=== PATIENT | male | born 1950 | race Caucasian/White ===

== ENCOUNTER 2025-01-21 11:52 | Emergency (ER) | payer OTHER, SELFPAY ==
--- OUTSIDE RECORDS SUMMARY | 2025-01-21 11:53 | XMS_ITS | Clinical Summary ---
Author Organization [facility] Address [address] [place] [address] Care Team Providers Care Sagger Soak Name Role Phone Chandra Padilla MD Primary Care Provider [phone] Allergies Active Allergy Reactions Criticality Noted Date Comments Codeine Nausea Only,GI Upset Low 02/22/2018 Medications Evans-3 Fatty Acids (FISH OIL) 1200 MG Cap Take 2 tablets by mouth daily. Active Flaxseed, Linseed, (FLAX SEEDS OR) Take 1 tablet by mouth daily. Active Turmeric 400 MG Cap Take 1 tablet by mouth daily. Active multivitamin tablet Take 1 tablet by mouth daily. Active Coenzyme Q10 (CO Q-10) 100 MG Cap Take 1 tablet by mouth. Active Psyllium 48.57 % Powder Take by mouth daily. Active vitamin D3, cholecalciferol, 1000 UNIT Tab tablet Take 1 tablet (25 mcg total) by mouth daily. Active atorvastatin (LIPITOR) 20 MG tabletIndications:M ixed hyperlipidemia TAKE 1 TABLET BY MOUTH EVERY DAY 90 tablet 1 5 Active meloxicam (MOBIC) 15 MG tabletIndications:T endonitis of right hip flexor Take 1 tablet (15 mg total) by mouth daily. 30 tablet 5 Active Active Problems Problem Noted Date Diagnosed Date Tendonitis of right hip flexor 11/24/2024 Right inguinal hernia 03/19/2023 Gastroenteritis 06/20/2022 Bunion of great toe of right foot 02/06/2022 Non-recurrent unilateral ing uinal hernia without obstruction or gangrene 12/02/2021 Fatigue, unspecified type 11/29/2020 Foot deformity, acquired, right 05/28/2020 BMI 23.0-23.9, adult 02/24/2019 Mixed hyperlipidemia 02/24/2019 Generalized osteoarthritis of multiple sites 05/2017 Resolved Problems Problem Noted Date Diagnosed Date Resolved Date Dizziness on standing 11/07/20202022 Bilateral impacted cerumen 03/15/2019 0 06/02/2022 Need for prophylactic vaccin ation against Streptococcus pneumoniae (pneumococcus) 02/24/2019 05/27/2021 Colon cancer screening 08/23/201806/09 Essential hypertension 05/24/201806/02 Encounters Date Type Department Care Team Description 12/27/2024 Scan HEALTH INFO SRVCS Scanned, Doc [facility] 12/07/2024 8:08 AM CDT - 12/07/2024 11:59 PM CDT Hospital Encounter [facility] [address] [place] [id number] Lelia Quijano, PT Lucien Phillips, Katy Ward PTA Hip Pain (R hip tendonitis) Discharge Disposition: Home or Self Care (Routine Discharge) 12/07/2024 Travel 12/01/2024 10:49 AM CDT - 12/01/2024 11:59 PM CDT Hospital Encounter [facility] [address] [place] [id number] Lelia Quijano, PT Lucien Phillips, PA Hip Pain Discharge Disposition: Home or Self Care (Routine Discharge) 12/01/2024 Travel 11/24/2024 10:26 AM CDT - 11/24/2024 11:59 PM CDT Hospital Encounter [facility] [address] [place] [id number] Cherise Huggins, DPT Lucien Phillips, PA Discharge Disposition: Home or Self Care (Routine Discharge) 11/24/2024 Travel 11/11/2024 7:20 AM CDT Office Visit [facility] Family & Internal Medicine [address] [phone] Lucien Phillips, PA Hip Pain (Pain from R groin area to hip x3 mo getting worse not taking anything for pain) 11/11/2024 Travel from Last 3 Months Immunizations Immunization Administration Dates Next Due FLUAD (IIV, Trivalent, 0.5 M L Pre-filled Syringe) 12/29/2023 Fluzone High Dose (IIV, triv alent, 0.5mL) 12/27/2024 Fluzone High Dose - >Age 65 (Prefilled Syringe) 01/05/2023,12/23/2021 Influenza (Generic) 12/25/2018,12/22/2017 Influenza Adult (Generic) 01/04/2021,,12/25/2018,2017 MODERNA COVID-19 (SENIOR MANUFACTURING ENGINEER PETER KIRAN), MRNA, LNP-S, PF, 50 MCG/ 0.25 ML DOSE 04/10/2021 Pneumococcal (Pneumovax 23) 05/23/2021 Pneumococcal (Prevnar 13) 02/24/2019 Shingrix 11/23/2021,08/21/2021 Family History Medical History Relation Comments Heart Father Arthritis Mother Relation Status Comments Father Mother Social History Tobacco Use Types Packs/Day Years Used Date Smoking Tobacco: Never Passive Smoke Exposure: Past Smokeless Tobacco: Never Tobacco Cessation:Counseling Given: No Comments:na Alcohol Use Standard Drinks/Week Comments No 0 (1 standard drink = 0.6 oz pur e alcohol) AUDIT-C Answer Date Recorded Frequency of Alcohol Consumption Never 02/22/2018 Average Number of Drinks Not on file 018 Frequency of Binge Drinking Not on file 05/2017 PHQ-2 Answer Date Recorded Patient Health Questionnaire-2 Score 0 08/25/2024 Education Answer Date Recorded What is the highest level of school you have completed or the highest degree you have received? 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 Not on file Not on file Not on fi le Last Filed Vital Signs Vital Sign Reading Time Taken Comments Blood Pressure 128/80 11/11/2024 7:36 AM CDT man ual Pulse 74 11/11/2024 7:31 AM CDT Temperature 36.4 C (97.5 F) 11/11/2024 7:31 AM CDT Respiratory Rate 18 11/11/2024 7:31 AM CDT Oxygen Saturation 99% 11/11/2024 7:31 AM CDT Inhaled Oxygen Concentration - - Weight 62.8 kg (138 lb 6.4 oz) 11/11/2024 7:31 A M CDT Height 175.3 cm (5' 9) 11/11/2024 7:31 AM CDT Body Mass Index 20.44 11/11/2024 7:31 AM CDT Plan of Treatment Upcoming Encounters Date Type Department Care Team (Late st Contact Info) Description 02/28/2025 1:00 PM 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 EQUIPMENT 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 Office Visit [facility] Family & Internal Medicine [facility] [id number] [place] [phone] Chandra Padilla MD [phone] [address] Health Maintenance Due Date Last Done Comments Hepatitis C 1968 DTaP, Tdap and Td Vaccines (1 - Tdap) 10[birth year]14/1969 Annual Medicare Wellness Visit 2017 COVID-19 Vaccine ( - season) 2024 04/10/2021, 05/28/2020 Colorectal Cancer Screening FIT-DNA (3 Years) 06/11/2025 06/11/2022, 06/11/2022, 03/11/2019 RSV Immunization or 60+ Years (1 - 1-dose 75+ series) 10/14/2027 Pneumococcal Vaccine: 50+ Years Completed 05/23/2021, 02/24/2019 Zoster Vaccines Completed 11/23/2021, 08/21/2021 PHQ-2 (Physician Kiana) Completed 08/25/2024 Influenza Adult Completed 12/27/2024, 1010/2023, 01/05/2023, Additional history exists Hepatitis A Vaccines Aged Out No long er eligible based on patient's age to complete this topic Meningococcal B Vaccine Aged Out No l onger eligible based on patient's age to complete this topic Meningococcal Vaccine Aged Out No duran prashant eligible based on patient's age to complete this topic RSV Immunizations Under 20 Months Aged Out No longer eligible based on patient's age to complete this topic Medical Devices Implanted Type Area Pest Management Supervisor Device Identifier Shelf Expiration Date Model / Serial / Lot Plug Hernia Light Mesh Xlarge - [id number] Implanted:Qty : 1 on 04/09/2023 by Apollo Aldridge MD at [facility] Mesh Right: Abdomen [employer] - DIV C R [employer]ARD [employer] [id number] 02/17/2027 [id number] / / Mesh Marlex Groin 4 X 1.8 - [id number] Implanted:Qty : 1 on 04/09/2023 by Apollo Aldridge MD at [facility] Mesh Right: Abdomen [employer] - DIV C R [employer] [id number] 09/18/2027 [id number] / / [id number] Pump Pain On-Q 400ml - [id number] Implanted:Qty : 1 on 04/09/2023 by Apollo Aldridge MD at [facility] Pump Right: Abdomen [employer]ello Inc[employer] Bluc[employer] 11/02/2024 [id number] / / [id number] [place] Plantar Plate Repair Implant Set Implanted:Qty : 1 on 02/25/2022 by Karmen Walker DPM at [facility] Right: Foot 12/02/2026 [id number] / / [id number] Small Phalinx Implant Implanted:Qty : 2 on 02/25/2022 by Karmen Walker DPM at [facility] Right: Toe [id number] / / Snap Off Screw Diam 2lg.12 Implanted:Qty : 2 on 02/25/2022 by Karmen Walker DPM at [facility] Right: Toe [employer] DIV CLAUDETTE JESUS [id number] / / Explanted Type Area Pest Management Supervisor Device Identifier Shelf Expiration Date Model / Serial / Lot 0.9mm Kwire Explanted:Qty: 1 on 02/25/2022 at [facility] Right: Toe [employer] [id number] / / 2.2mm Drill Explanted:Qty: 1 on 02/25/2022 at [facility] Right: Toe [employer] [id number] / / 7.5 Mm Planar Explanted:Qty: 1 on 02/25/2022 at [facility] Right: Toe [employer] [id number] / / [id number] Procedures Procedure Name Priority Date/Time Associated Diagnosis Comments COLOGUARD (EXACT SCIENCE) Routine 06/11/2022 8:00 AM CDT Colon cancer screening from Last 3 Months or Most Recently Relevant to Health Maintenance Results * COLOGUARD (EXACT SCIENCE) (06/11/2022 8:00 AM CDT) COLOGUARD RESULT Negative Negative [facility] (CLIA #:[id number]) Comment: NEGATIVE TEST RESULT. A negative Cologuard result indicates a low likelihood that a colorectal cancer (CRC) or advanced adenoma (adenomatous polyps with more advanced pre-malignant features) is present. The chance that a person with a negative Cologuard test has a colorectal cancer is less than 1 in 1500 (negative predictive value >99.9%) or has an advanced adenoma is less than 5.3% (negative predictive value 94.7%). These data are based on a prospective cross-sectional study of 10,000 individuals at average risk for colorectal cancer who were screened with both Cologuard and colonoscopy. (Danielle Quevedo al, N Engl J Med 2014;370(14):4239-6275) The normal value (reference range) for this assay is negative. COLOGUARD RE-SCREENING RECOMMENDATION: Periodic colorectal cancer screening is an important part of preventive healthcare for asymptomatic individuals at average risk for colorectal cancer. Following a negative Cologuard result, the [place] Cancer Society and U.S. Multi-Society Task Force screening guidelines recommend a Cologuard re-screening interval of 3 years. References: [place] [employer] Guideline for Colorectal Cancer Screening: https://www.cancer.org/cancer/xlcgu-ndratj-iebztw/ponqgjzyg-lldioqozv-xrjiudw/ac s-rec ommendations.html.; Avery DK, Cesar CR, Sudhakar JiK, Colorectal Cancer Screening: Recommendations for Physicians and Patients from the U.S. Multi-Society Task Force on Colorectal Cancer Screening , Am J Gastroenterology 2017; 112:3230-2794. TEST DESCRIPTION: Composite algorithmic analysis of stool DNA-biomarkers with hemoglobin immunoassay. Quantitative values of individual biomarkers are not reportable and are not associated with individual biomarker result reference ranges. Cologuard is intended for colorectal cancer screening of adults of either sex, 45 years or older, who are at average-risk for colorectal cancer (CRC). Cologuard has been approved for use by the U.S. FDA. The performance of Cologuard was established in a cross sectional study of average-risk adults aged 50-84. Cologuard performance in patients ages 45 to 49 years was estimated by sub-group analysis of near-age groups. Colonoscopies performed for a positive result may find as the most clinically significant lesion: colorectal cancer [4.0%], advanced adenoma (including sessile serrated polyps greater than or equal to 1cm diameter) [20%] or non- advanced adenoma [31%]; or no colorectal neoplasia [45%]. These estimates are derived from a prospective cross-sectional screening study of 10,000 individuals at average risk for colorectal cancer who were screened with both Cologuard and colonoscopy. (Danielle Quevedo al, N Engl J Med 2014;370(14):0890-8131.) Cologuard may produce a false negative or false positive result (no colorectal cancer or precancerous polyp present at colonoscopy follow up). A negative Cologuard test result does not guarantee the absence of CRC or advanced adenoma (pre-cancer). The current Cologuard screening interval is every 3 years. ([place] Cancer Society and U.S. Multi-Society Task Force). Cologuard performance data in a 10,000 patient pivotal study using colonoscopy as the reference method can be accessed at the following location: www.Zavedenia.com.GetApp/results. Additional description of the Cologuard test process, warnings and precautions can be found at www.Parcelrd.com. STOOL STOOL SPECIMEN / Unknown 06/11/2022 8:00 AM CDT 06/12/2022 2:18 PM CDT us Emile West MD BODY FLUIDS AND STOOLS O RDERABLES Final Result [facility]) [address] [place] [address], [facility] (CLIA #:[id number]) [address] [place] [address] from Last 3 Months or Most Recently Relevant to Health Maintenance Insurance [employer] Care Teams Sagger Soak Relationship Specialty [place] [address] [place] [address] PCP - General FAMILY PRACTICE 06/10/22
[2025-01-21 12:06] VITALS: BP 148/75; PULSE 96; RESP 20; TEMP 36.2; O2SAT 99
--- NOTE | 2025-01-21 12:21 | ED_ITS ---
HPI - General Adult General Chief complaint: Upper Respiratory Infection Stated complaint: Sore throat Time Seen by Provider: 01/21/25 12:21 Source: patient Mode of arrival: ambulatory Limitations: no limitations History of Present Illness HPI narrative: 74-year-old male patient presents to the [facility] with complaints of a sore throat that started last night. Denies fevers body aches or chills. Denies any ear pain. Denies chest pain shortness of breath abdominal pain nausea vomiting or diarrhea. Related Data Home Medications ?Medication ?Instructions ?Recorded ?Confirmed ?Last Taken ?Type atorvastatin 20 mg tablet mg 01/21/25 Unknown History meloxicam 15 mg tablet mg 01/21/25 Unknown History Allergies Allergy/AdvReac Type Severity Reaction Status Date / Time No Known Allergies Allergy Verified 01/21/25 11:59 Review of Systems Review of Systems: CONSTITUTIONAL: Denies fever, chills, or sweats. EYES: Denies visual changes, redness, or discharge. ENT: positive rhinorrhea, congestion, sore throat, denies otalgia. CARDIOVASCULAR: Denies chest pain, palpitations, or edema. RESPIRATORY: Denies cough or dyspnea. GASTROINTESTINAL: Denies abdominal pain, nausea, vomiting, or diarrhea. GENITOURINARY: Denies dysuria or hematuria. SKIN: Denies rash or itching. MUSCULOSKELETAL: Denies back pain, joint pain, or myalgia. NEUROLOGIC: Denies headache, numbness, or weakness. PSYCHIATRIC: Denies anxiety or depression. PMFSH Past Medical History Medical History (Updated 01/21/25 @ 12:32 by Jessa Garcia APRN) Hypercholesteremia Arthritis Kidney stones Melena Small bowel obstruction Surgical History Surgical History (Updated 01/21/25 @ 12:23 by Jessa Garcia APRN) H/O inguinal hernia repair Hx of appendectomy Comments At the time of my signature I agree with nursing past medical history, surgical, social, and family history. There is no relevant family history pertinent to the presenting complaint. Exam Narrative: GENERAL: Well-appearing, well-nourished, and in no acute distress. HEAD: Normocephalic, atraumatic. EYES: PERRLA and EOMI. ENT: Nares with erythema edema noted bilaterally, yellow rhinorrhea no epistaxis. Mucous membranes moist. posterior pharynx with some postnasal drip noted. No tonsillar enlargement no exudates or lesions present. Bilateral TMs are clear no erythema or foreign bodies the canal there a little bit of fluid noted to the left TM. NECK: Supple. No lymphadenopathy CHEST: Clear to auscultation. No respiratory distress. HEART: Regular rate and rhythm. No murmur heard. Normal peripheral pulses. ABDOMEN: Soft, nontender, nondistended, normal active bowel sounds. EXTREMITIES: Normal range of motion. No edema. SKIN: Warm, dry, no rash. NEURO: No focal deficits. Alert and oriented x3. Course Course Level of Care: Express Care Visit Vital Signs Vital signs: Vital Signs Temperature 36.2 C L 01/21/25 12:06 Pulse Rate 96 01/21/25 12:06 Respiratory Rate 20 01/21/25 12:06 Blood Pressure 148/75 H 01/21/25 12:06 Pulse Oximetry 99 01/21/25 12:06 Oxygen Delivery Room Air 01/21/25 12:06 Temperature 36.2 C L 01/21/25 12:06 Pulse Rate 96 01/21/25 12:06 Respiratory Rate 20 01/21/25 12:06 Blood Pressure 148/75 H 01/21/25 12:06 Pulse Oximetry 99 01/21/25 12:06 Oxygen Delivery Room Air 01/21/25 12:06 vital signs reviewed. The patient has been informed that they may have pre-hypertension or Hypertension based on a BP reading in the department. I recommend that the patient call the primary care provider listed on their discharge instructions or a physician of their choice this week to arrange follow up for further evaluation of possible pre-hypertension or Hypertension Medical Decision Making MDM Narrative Medical decision making narrative: Discussed with patient's point of care test for strep was negative today. Discussed with him that we will send this to the lab for culture and if the culture comes back positive we will put him on antibiotics at that time. Discussed with him no antibiotics today this is most likely viral and could be treated with [id number] symptomatic treatment. Discussed with patient highly recommend Tylenol ibuprofen for pain as well as warm salt-water gargles hot tea and honey to help soothe the sore throat. Definitely recommended 24 hour antihistamine such as Zyrtec, Evelyn or Claritin given that we did find some sinus drainage during exam. Patient is aware the plan of care denies any other questions or concerns at this time. Differential Diagnosis Differential Diagnosis: Differential diagnosis: Allergic rhinitis, chronic sinusitis, tonsillitis, acute sinusitis, infectious mononucleosis, seasonal influenza, pertussis, diphtheria, meningococcal disease, viral syndrome, viral bronchitis, RSV, COVID- 19 Vital Signs Vital Signs: Vital Signs Temperature 36.2 C L 01/21/25 12:06 Pulse Rate 96 01/21/25 12:06 Respiratory Rate 20 01/21/25 12:06 Blood Pressure 148/75 H 01/21/25 12:06 Pulse Oximetry 99 01/21/25 12:06 Oxygen Delivery Room Air 01/21/25 12:06 Temperature 36.2 C L 01/21/25 12:06 Pulse Rate 96 01/21/25 12:06 Respiratory Rate 20 01/21/25 12:06 Blood Pressure 148/75 H 01/21/25 12:06 Pulse Oximetry 99 01/21/25 12:06 Oxygen Delivery Room Air 01/21/25 12:06 Lab Data Labs: Lab Results 01/21/25 Range/Units 12:22 POC Grp A Strep Screen Negative (Negative) Critical Care Time Critical Care Time Critical Care Time: No Discharge Plan Discharge Clinical Impression: Viral URI Pharyngitis Qualifiers: Pharyngitis/tonsillitis etiology: unspecified etiology Qualified Code(s): J02.9 - Acute pharyngitis, unspecified Patient Disposition: Home Condition: Stable Instructions: Antibiotic Form, Viral Syndrome (ED) Additional Instructions: Viral illness may last between 7-12days; antibiotic is NOT recommended at this time. Recommend antihistamine such as Benadryl at night time and Claritin/Zyrtec/Evelyn during the day may use zemj-oiz-ndewapl Flonase 2 sprays in each nostril twice a day once in the morning once before bed to help dry up the runny nose and prevent the postnasal drip that was noted on exam. Increase your vitamins to help boost her immune system with every take daily for your vitamin C please double that until you start to feel better. May use warm salt water gargles hot tea and honey to help soothe the throat along with any Tylenol or ibuprofen as needed for pain Also, recommend symptomatic treatment includes: rest, fluids, and increase humidity of the air at home. Recommend Acetaminophen or nonsteroidal anti-inflammatory agents (NSAIDs) as directed in the bottle to reduce fever and/pain/headache. Avoid smoking/second-hand smoke. Limit visits to areas with large crowds. Please schedule a follow-up visit with your personal physician for further evaluation and treatment within 3-5days. Including recheck and discussion of your blood pressure. If your symptoms persist, change or worsen significantly before you can contact your personal physician then please, without delay, go to the emergency department for further evaluation. Patient Language: Jamaican Prescriptions: No Action atorvastatin 20 mg tablet meloxicam 15 mg tablet Follow-up/Referrals: Valerie,Chandra Barney MD [Primary Care Provider, Unknown] Time of Disposition: 12:32
[2025-01-21 12:24] LABS: EDSTREPNEGPOS1 Negative (Negative)
[2025-01-21 12:58] LABS: EDCOVIDSCREEN Negative (Negative); EDINFLUASCREEN Negative (Negative); EDINFLUBSCREEN Negative (Negative)
== END 2025-01-21 12:56 | disposition home or self-care (01) ==
PROVIDERS: Emergency Provider Nurse Practitioner Family; PCP Family Medicine Sports Medicine
DX: J06.9 Acute upper respiratory infection, unspecified (principal); J02.9 Acute pharyngitis, unspecified; Z20.822 Contact with and (suspected) exposure to COVID-19
CPT/HCPCS: 87081; 87426; 87804; 87880; 99213; G0463